=== PATIENT | male | born 1980 | race Caucasian/White ===

== ENCOUNTER 2016-10-15 19:45 | Emergency (ER) | payer BC ==
[~2016-10-15] VITALS: Ht 180.3 cm; Wt 83.0 kg
[2016-10-15 20:00] VITALS: BP 130/89
--- NOTE | 2016-10-15 20:10 | Emergency Room Report ---
History of Present Illness General Chief Complaint: Lower Extremity Injury Source: Patient Present Illness HPI Patient reports initial injury to the left toe at the end of August He has had off-and-on discomfort to that toe Essentially earlier today patient's toe was caught on a carpet and essentially lifted a total up bending it backwards Denies any pain at this time The patient has been to the toe nail back on top of the nailbed Denies any fevers or chills denies any foot pain Allergies: Coded Allergies: No Known Allergies (Unverified , 10/15/16) Patient History Past Medical History: see triage record Pertinent Family History: none Reviewed Nursing Documentation: PMH: Agreed, PSxH: Agreed Nursing Documentation-PMH Past Medical History: No Stated History Review of Systems All Other Systems: negative except mentioned in HPI Physical Exam Vital Signs Date Time Temp Pulse Resp B/P Pulse Ox O2 Delivery O2 Flow Rate FiO2 10/15/16 19:52 98.1 74 16 134/88 100 Room Air Sp02 EP Interpretation: reviewed, normal General Appearance: well appearing, no apparent distress Head: normocephalic, atraumatic Eyes: bilateral eye EOMI, bilateral eye PERRL ENT: normal pharynx Neck: supple Musculoskeletal: other - No obvious fractures on the left large toe nail, there is a questionably mild whitish appearance to the nail, the palm of the toe otherwise is nontender Neurologic: alert, oriented x3, responsive Skin: normal color Procedures Laceration/Wound Repair Progress Steri-Strip was applied across the top of the nail, but does apply appropriate localization and stabilization patient remained neurovascularly intact on recheck Medical Decision Making Diagnostic Impression: Primary Impression: Nail avulsion of toe ER Course Given the history exam and findings I do not feel that any further emergency room intervention was required Patient is provided with podiatry specialty consultation We did apply a Steri-Strip across the top of the nail to keep it intact And the patient will have close outpatient followup Last Vital Signs Date Time Temp Pulse Resp B/P Pulse Ox O2 Delivery O2 Flow Rate FiO2 10/15/16 19:52 98.1 74 16 134/88 100 Room Air Status: improved Disposition: HOME, SELF-CARE Condition: Improved Additional Instructions: Patient is provided with the discharge instructions notified to follow up with primary doctor in the next 2-3 days otherwise return to the er with any worsening symptoms. Please note that this report is being documented using DRAGON technology. This can lead to erroneous entry secondary to incorrect interpretation by the dictating instrument. MURALI SOLANO D.O. Oct 15, 2016 20:10
== END 2016-10-15 20:30 | disposition home or self-care (01) ==
LOC: EMR 20:15
DX: S91.209A Unspecified open wound of unspecified toe(s) with damage to nail, initial encounter (principal); W22.8XXA Striking against or struck by other objects, initial encounter; Y93.9 Activity, unspecified; Y92.9 Unspecified place or not applicable
CPT/HCPCS: 99283